=== PATIENT | female | born 1970 | race Caucasian/White ===

== ENCOUNTER 2020-08-26 21:43 | Emergency (ER) | payer OTHER ==
[~2020-08-26] VITALS: Ht 167.6 cm; Wt 80.7 kg
[2020-08-26] MEDS ORDERED: CRESTOR5 MG (22:00)
[2020-08-26] MEDS ORDERED: ORPHENADRINE C100 MG PO (23:58)
[2020-08-26] MEDS ORDERED: KETO10TA2 PO (23:58)
== END 2020-08-26 23:47 | disposition home or self-care (01) ==
LOC: ER 21:43
DX: S80.01XA Contusion of right knee, initial encounter (principal); W01.198A Fall on same level from slipping, tripping and stumbling with subsequent striking against other object, initial encounter; Y93.89 Activity, other specified; Y92.59 Other trade areas as the place of occurrence of the external cause; Y99.8 Other external cause status

== ENCOUNTER → 2021-01-20 | Emergency (ER) | payer OTHER ==
[~2021-01-20] VITALS: Ht 167.6 cm; Wt 80.7 kg
[~2021-01-20] MED LIST: ATACAND16 MG; CELEBREX200MG PO; CRESTOR5 MG; DICLOFENAC SODI75 MG PO; KETO10TA2 PO; NORFLEX100MG PO; ORPHENADRINE C100 MG PO
== END | disposition home or self-care (01) ==
LOC: ER 19:25
DX: M54.5 Low back pain (principal)

== ENCOUNTER 2022-10-22 05:51 | Emergency (ER) | payer OTHER ==
[~2022-10-22] VITALS: Ht 167.6 cm; Wt 81.6 kg
== END 2022-10-22 10:55 | disposition home or self-care (01) ==
LOC: ER 05:51
DX: J22 Unspecified acute lower respiratory infection (principal); Z20.822 Contact with and (suspected) exposure to COVID-19

== ENCOUNTER → 2023-03-14 | Emergency (ER) | payer OTHER ==
[~2023-03-14] VITALS: Ht 167.6 cm; Wt 80.7 kg
== END | disposition home or self-care (01) ==
LOC: ER 13:29
DX: R05.9 Cough, unspecified (principal); Z20.822 Contact with and (suspected) exposure to COVID-19

== ENCOUNTER 2023-03-16 16:00 | Outpatient (CLI) | payer OTHER | END 2023-03-16 16:05 | disposition home or self-care (01) | LOC: RAD 16:00 | PROVIDERS: ATTEND Pulmonary Function Technologist | DX: J45.901 Unspecified asthma with (acute) exacerbation (principal); D64.9 Anemia, unspecified; I10 Essential (primary) hypertension ==